=== PATIENT | male | born 1990 | race Caucasian/White ===

== ENCOUNTER 2016-06-06 16:33 | Emergency (ER) | payer MEDICAID ==
--- NOTE | 2016-06-06 17:04 | RAD ---
FOREARM RIGHT HISTORY: Forearm laceration from broken glass. COMPARISONS: None. FINDINGS: 2 views of the right forearm were performed demonstrating intact osseous structures. There is no discrete fracture visualized. No radiopaque foreign body is seen. The proximal and distal joint spaces are well-maintained. IMPRESSION: 1. Negative views of the right forearm with no fracture or radiopaque foreign body observed.
--- NOTE | 2016-06-06 17:05 | RAD ---
HAND-RIGHT 3 VIEWS HISTORY: Laceration from glass. COMPARISONS: None. FINDINGS: 3 views of the right hand demonstrate normal bony mineralization. The osseous structures remain intact. The alignment is normal. The joint spaces are well-maintained. There is no discrete radiopaque foreign body visualized. The soft tissue structures are grossly intact. IMPRESSION: 1. Negative views of the right hand with no fracture or radiopaque foreign body visualized.
== END 2016-06-06 18:12 | disposition home or self-care (01) ==
LOC: ED 16:33
DX: S61.412A Laceration without foreign body of left hand, initial encounter (principal); S61.411A Laceration without foreign body of right hand, initial encounter; S51.812A Laceration without foreign body of left forearm, initial encounter; J45.909 Unspecified asthma, uncomplicated; F17.210 Nicotine dependence, cigarettes, uncomplicated; W25.XXXA Contact with sharp glass, initial encounter; Y92.039 Unspecified place in apartment as the place of occurrence of the external cause